=== PATIENT | female | born 1945 | race Two or more races ===

== ENCOUNTER 2022-07-09 06:20 | Day surgery (SDC) | payer OTHER ==
[~2022-07-09 06:20] MED LIST: AMLODIP PO; ANASTROZOLE1 MG PO; ATORVASTATIN CA40 MG PO; IMODIUM PO; LEVOTHYROXINE25 MCG PO; PROLIA60 MG/1 ML SQ; [UNRECOGNIZED DRUG - OTHER] PO
[2022-07-09] MEDS ORDERED: MACROBID 100 M100 MG PO (11:19)
[2022-07-09] MEDS ORDERED: TRAM1TAB98 PO (11:21)
== END 2022-07-09 16:35 | disposition home or self-care (01) ==
LOC: CIR.AMB 06:20
PROVIDERS: ATTEND Obstetrics & Gynecology Gynecology
DX: N39.3 Stress incontinence (female) (male) (principal); N36.41 Hypermobility of urethra; N88.3 Incompetence of cervix uteri; I10 Essential (primary) hypertension; E78.49 Other hyperlipidemia; Z20.822 Contact with and (suspected) exposure to COVID-19
CPT/HCPCS: 57288; C1771